=== PATIENT | female | born 1955 | race Two or more races ===

== ENCOUNTER 2019-07-05 10:06 | Emergency (ER) | payer OTHER ==
[~2019-07-05] VITALS: Ht 154.9 cm; Wt 68.9 kg
== END 2019-07-05 12:37 | disposition home or self-care (01) ==
LOC: ER 10:06
DX: T78.49XA Other allergy, initial encounter (principal); R21 Rash and other nonspecific skin eruption; X58.XXXA Exposure to other specified factors, initial encounter